=== PATIENT | female | born 1985 | race Caucasian/White ===

== ENCOUNTER → 2017-10-16 11:55 | Outpatient (CLI) | payer OTHER, SELFPAY ==
--- NOTE | 2017-10-25 09:56 | PM.CARDMON.1 ---
Per Diem Nurse Report Referral & Results Date Patient Seen: 10/16/17 Requesting provider: Florence Parada Indication: Palpitations Duration of monitoring (days): 3 Diary information: There were no patient diary entries. There were 10 patient triggered events associated with sinus rhythm and PVCs. 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 Occasional PVCs and PACs maybe etiology of patient's symptoms. Difficult to ascertain based on this study alone, as patient triggered events seem to be both sinus rhythm and premature depolarizations No other significant dysrhythmias identified Clinical correlation suggested
--- NOTE | 2017-10-25 09:59 | P.HOLT.S_ITS ---
Internet Marketing Assistant Report Referral & Results Date Patient Seen: 10/16/17 Requesting provider: Florence Parada Indication: Palpitations Duration of monitoring (days): 3 Diary information: There were no patient diary entries. There were 10 patient triggered events associated with sinus rhythm and PVCs. Data: The minimum heart rate identified was 45 beats per minute at 03:43 on 10/2017 Maximum heart rate identified was 160 beats per minute at 08:22 on 10/19/2017 Less than 1% of identified beats were either PACs or PVCs Impression: Probably normal air sampling and monitoring. Occasional PVCs and PACs maybe etiology of patient's symptoms. Difficult to ascertain based on this study alone, as patient triggered events seem to be both sinus rhythm and premature depolarizations No other significant dysrhythmias identified Clinical correlation suggested
== END ==
PROVIDERS: Family Provider Family Medicine; PCP Family Medicine; Visit Provider Family Medicine
DX: R00.2 Palpitations (principal)
CPT/HCPCS: 0296T; 0298T

== ENCOUNTER 2017-10-31 08:14 | Outpatient (CLI) | payer OTHER, SELFPAY ==
[2017-10-31] VITALS (8 sets, daily range): BP systolic 94–125; BP diastolic 55–71; PULSE 71–86; RESP 16–17; TEMP 36.7; O2SAT 100
--- NOTE | 2017-10-31 | DI.RAD.S_ITS ---
PROCEDURE: PAIN SI JOINT INJECTION INDICATIONS: INFLAMMATORY SPONDYLOSIS FINDINGS: Fluoroscopic spot filming was performed to verify placement of spinal needles at the right SI joint level(s), as labeled on the films. Appropriate location(s) of the needle tip(s) was confirmed by injection of iodinated contrast. IMPRESSION: Injection right sacroiliac joint for pain control Dictated by: Andrzej White M.D. on 10/31/2017 at 13:18 Approved by: Andrzej White M.D. on 10/31/2017 at 13:19
--- NOTE | 2017-10-31 08:15 | DI.RAD.S_ITS ---
PROCEDURE: PAIN L/SI FACET INJ/BLK 1STL INDICATIONS: ARTHROPATHY OF LUMBAR FACET FINDINGS: Fluoroscopic spot filming was performed to verify placement of spinal needles at the right L5-S1 level, as labeled on the films. Appropriate location(s) of the needle tip(s) was confirmed by injection of iodinated contrast. IMPRESSION: Successful right L5-S1 localization for facet joint region steroid injection. Dictated by: Wei Ignacio M.D. on 10/31/2017 at 11:02 Approved by: Wei Ignacio M.D. on 10/31/2017 at 11:03
--- NOTE | 2017-10-31 09:21 | P.PCN_ITS ---
Procedures Date/Time Date of procedure: 10/31/17 Time of procedure: 09:43 General Procedure description: PREOP Dx: Sacroiliac joint pain/DJD POST OP DX: Sacroliac Joint Pain/DJD Procedures: Fluoroscopic guided contrast controlled sacroiliac joint injection Physician: Paul Cervantes D.O. Indications: Jessica is referred by for treatment of sacroiliac joint DJD Description of procedure Fluoroscopic guided, contrast controlled sacroiliac joint injection Following denial of allergies and review of potential side effects and complications, including, but not necessarily limited to, infection, allergic reaction, local tissue breakdown, temporary as well as permanent nerve injury, paralysis, stroke and possible , the patient indicated that they understood and agreed to proceed. An informed consent was signed by the patient , witnessed by a nurse, and placed in the patient's chart. Additionally, other treatment options including modalities, medications, and physical therapy were reviewed with the patient. Per the patient request, IV conscious sedation was administered via 4mg of Versed to patient comfort. The patient's vital signs were monitored throughout the procedure by both the nurse and the position without significant fluctuation. The patient remained conversant throughout the procedure. In the prone position following sterile prep and drape of the pelvic region, the hyper lucency on in the inferior aspect of the sacroiliac joint was identified fluoroscopically the skin was anesthetized be a 25 gauge 1 eventual with approximately 2 cc of 1% lidocaine solution. At this point, a 22 gauge 3 in spinal needle was atraumatically introduced and advanced under fluoroscopic guidance into the inferior aspect of the sacroiliac joint. Following negative aspiration, approximately 0.3 cc of Isovue-300 was injected confirming intra- articular placement without vascular uptake. Radiographic data, including multiple fluoroscopic views of the pelvis, reveals a spinal needle in the sacroiliac joint hyper loosen zone. Subsequent view show flow contrast tear superiorly and inferiorly within the joint capsule without vascular intrathecal uptake. At this point a total of 1 cc or 0 8 of 0.5% Marcaine was combined with 1 cc of 6 mg of betamethasone was injected without incident. The patient was then transferred to the recovery area with a bur observed for an appropriate time after the injection. The patient reverted a vas score of 7 prior to the procedure and postprocedure vas of 1. Total fluoroscopy time: 22.7 sec Total conscious sedation time: 24 min Postop instructions The patient was provided with a pain like to continue to record the patient's response to the target specific procedure prior to the patient's follow-up visit with the referring physician. Additionally, specific post injection care instructions and a contact number to our office were provided if concerns arise regarding the possible complications associated with procedure are suspected. Paul Cervantes D.O.
[2017-10-31] MEDS: MIDAZOLAM 5 MG/5 ML VIAL IV (09:22)
[2017-10-31] MEDS: BUPIVACAINE 0.5% (PF) 30 ML VIAL 5 ML INJ (09:30)
[2017-10-31] MEDS: BETAMETHASONE 30 MG/5 ML MDV 12 MG INJ (09:30)
[2017-10-31] MEDS: BETAMETHASONE 30 MG/5 ML MDV 6 MG INJ (09:30)
[2017-10-31] MEDS: IOPAMIDOL 15 ML VIAL 3 ML INJ (09:30)
[2017-10-31] MEDS: LIDOCAINE 1% 20 ML INJ 10 ML INJ (09:30)
--- NOTE | 2017-10-31 09:46 | P.PCN_ITS ---
Procedures Date/Time Date of procedure: 10/31/17 Time of procedure: 09:46 General Procedure description: PREOP DIAGNOSIS 1. FACET ARTHROPATHY, 2. AXIAL LBP, 3. MULTILEVEL DDD, POST OP DIAGNOSIS 1. FACET ARTHROPATHY, 2. AXIAL LBP, 3. MULTILEVEL DDD, PROCEDURES 1. FLUORSCOPICALLY GUIDED CONTRAST CONTROLLED FACET JOINT INJECTIONS RIGHT L5/ S1 SURGEON: DO TONG Solorzano is referred by Dr. Parada for treatment of Axial LBP FINDINGS Multilevel Facet Arthropathy with Clinically significant axial LBP DESCRIPTION OF PROCEDURE Fluoroscopically guided, contrast-controlled right L5/S1 facet joint injections. Following denial of allergy and review of potential side effects and complications, including, but not necessarily limited to, infection, allergic reaction, local tissue breakdown, stroke, temporary or permanent nerve injury, paralysis, and possible , the patient indicated that the patient understood and agreed to proceed. An informed consent document was signed by the patient, witnessed by a nurse, and placed in the patient's chart. Additionally, other treatment options including medications, modalities, and physical therapy were reviewed with the patient. Per the patient request, IV conscious sedation was administered via 4mg of Versed to patient comfort. The patient's vital signs were monitored throughout the procedure by both the nurse and the physician without significant fluctuation. The patient remained conversant throughout the procedure. In the prone position, following sterile prep and drape of the lumbar region, the posterior aspect of the right L5/S1 facet joints were identified fluoroscopically. The skin was anesthetized via a 25-gauge 1.5-inch needle with 1% lidocaine solution into the corresponding facet joints. At this point, a 22-gauge 3.5-inch spinal needle was atraumatically introduced and advanced under fluoroscopic guidance into the corresponding facet joints. Following negative aspiration, injections of approximately 0.2-cc of Isovue 200 confirmed interarticular placement without vascular uptake. Radiological data, including multiple fluoroscopic views of the lumbosacral spine, reveal a spinal needle at the right L5/S1 facet joints. Subsequent views show flow of contrast material both superiorly and inferiorly within the joint space without vascular or intrathecal uptake. At this point, a total of 0.5 cc including a mixture of 0.25 cc Marcaine and 0.25 cc betamethasone was injected without complication into each of the corresponding facet joints. The patient was then transferred to the recovery area where they were observed for an appropriate period of time after the injection. The patient reported a VAS score of 7 prior to the procedure and a post-procedure VAS of 0. Total Fluoroscopy Time: 12.7 seconds Total Conscious Sedation Time: 24min POST OP INSTRUCTIONS The patient was provided a Pain Log to continue to record their response to the target-specific procedure prior to follow-up visit with their referring physician. Additionally, specific post-injection care instructions and a contact number to our office were provided if concerns arise regarding possible complications associated with the procedure are suspected Complications: none
== END 2017-10-31 10:12 | disposition home or self-care (01) ==
LOC: RAD 08:15
PROVIDERS: Family Provider Family Medicine; PCP Family Medicine; Visit Provider Physical Medicine & Rehabilitation
DX: M46.96 Unspecified inflammatory spondylopathy, lumbar region (principal); M53.3 Sacrococcygeal disorders, not elsewhere classified; M47.898 Other spondylosis, sacral and sacrococcygeal region
CPT/HCPCS: 27096; 64493; 99152; J0702; J1040; J2250

== ENCOUNTER → 2018-01-30 12:25 | Outpatient (CLI) | payer OTHER, SELFPAY ==
--- NOTE | 2018-01-30 12:27 | DI.RAD.S_ITS ---
PROCEDURE: XR FOOT RT MIN 3V INDICATIONS: right heel pain TECHNIQUE: 3 views of the foot were acquired. COMPARISON: [facility], CR, ANKLE 3 VIEWS RIGHT, 06/29/2009, 10:54. [facility], RG, XR ANKLE 3V RIGHT, 08/30/1999, 12:46. [facility], RG, XR ANKLE 3V RIGHT, 08/04/2002, 10:59. FINDINGS: Bones: No fractures or dislocations. No suspicious bony lesions. A bipartite lateral sesamoid bone can be seen. Soft tissues: No tibiotalar joint effusion. Achilles tendon appears normal. IMPRESSION: No significant imaging abnormality is seen to explain the patient's symptoms. Dictated by: Kj Spence M.D. on 01/30/2018 at 13:24 Approved by: Kj Spence M.D. on 01/30/2018 at 13:25
== END ==
PROVIDERS: Family Provider Family Medicine; PCP Family Medicine; Visit Provider Family Medicine
DX: M79.671 Pain in right foot (principal)
CPT/HCPCS: 73630

== ENCOUNTER → 2018-02-28 15:00 | Outpatient (CLI) | payer OTHER, SELFPAY | PROVIDERS: PCP Family Medicine | DX: Z23 Encounter for immunization (principal) | CPT/HCPCS: 90471; 90686 ==

== ENCOUNTER → 2018-05-09 09:22 | Outpatient (CLI) | payer OTHER, SELFPAY ==
--- NOTE | 2018-05-09 09:23 | DI.MG.S_ITS ---
BILATERAL DIGITAL SCREENING MAMMOGRAM 3D/2D WITH CAD: 05/09/2018 CLINICAL: Routine screening. Family history of breast cancer. Comparison is made to exams dated: 11/29/2016 mammogram and 04/10/2014 mammogram - [facility]. The tissue of both breasts is extremely dense, which lowers the sensitivity of mammography. Current study was also evaluated with a Computer Aided Detection (CAD) system. There is an oval equal density asymmetry with an indistinct margin in the right breast posterior depth superior region seen on the mediolateral oblique view only. No other significant masses, calcifications, or other findings are seen in either breast. IMPRESSION: INCOMPLETE: NEEDS ADDITIONAL IMAGING EVALUATION The oval equal density asymmetry in the right breast is indeterminate. Mediolateral and spot compression views as well as additional views with possible ultrasound are recommended. This exam was interpreted at Station ID: [id number]. NOTE: For mammograms, a report in lay terms will be sent to the patient. Approximately 15% of breast malignancies will not be visualized mammographically. In the management of a palpable breast mass, a negative mammogram must not discourage biopsy of a clinically suspicious lesion. Electronically Signed By: Jonathan roberson/nicky:05/09/2018 18:16:40 letter sent: Additional Imaging Needed ACR BI-RADS Category 0: Incomplete 3340F
== END ==
PROVIDERS: PCP Family Medicine; Visit Provider Family Medicine
DX: Z12.31 Encounter for screening mammogram for malignant neoplasm of breast (principal)
CPT/HCPCS: 77063; 77067

== ENCOUNTER → 2018-05-23 14:17 | Outpatient (CLI) | payer OTHER, SELFPAY ==
--- NOTE | 2018-05-23 14:00 | DI.US.S_ITS ---
Patient Name: SONYA OROURKE date: 1985 Sex: F Attending Physician: Franky Indications: Date: 05/23/2018 16:37 At the request of: DALLAS ARNDT Procedure: US breast RT limited ULTRASOUND OF RIGHT BREAST: 05/23/2018 CLINICAL: Follow up from addtional views. Comparison is made to exams dated: 05/23/2018 mammogram, 05/09/2018 mammogram, and 11/29/2016 mammogram - [facility]. Color flow ultrasound of the right breast was performed. Zamora scale images of the real-time examination were reviewed. There is 0.5 cm wider than tall oval mass with a circumscribed margin in the right breast at 12 o'clock posterior depth 8 cm from the nipple. This oval mass is hypoechoic with internal echoes. Color flow imaging demonstrates that there is no vascularity present. IMPRESSION: PROBABLY BENIGN The 0.5 cm wider than tall oval mass in the right breast likely represents clustered cysts or a complicated cyst and is probably benign. A follow-up ultrasound in 6 months is recommended to demonstrate stability. This exam was interpreted at Station ID: [id number]. Electronically Signed By: Ulises rubio/nicky:05/23/2018 17:52:59 letter sent: Followup Recommended Ultrasound BI-RADS: 3 Probably benign
--- NOTE | 2018-05-23 14:00 | DI.MG.S_ITS ---
Patient Name: SONYA OROURKE date: 1985 Sex: F Attending Physician: Franky Indications: Date: 05/23/2018 14:26 At the request of: DALLAS ARNDT Procedure: MM special view RT UNILATERAL RIGHT DIGITAL DIAGNOSTIC MAMMOGRAM 3D/2D WITH ADDITIONAL VIEWS: 05/23/2018 CLINICAL: Additional evaluation requested from prior study. Family history of breast cancer. Comparison is made to exams dated: 05/09/2018 mammogram, 11/29/2016 mammogram, and 04/10/2014 mammogram - [facility]. The tissue of right breast is extremely dense, which lowers the sensitivity of mammography. The equal density asymmetry with an indistinct margin in the right breast posterior depth superior region seen on the mediolateral oblique view only is no longer seen in additional views. No other significant masses or calcifications are seen in the breast. IMPRESSION: INCOMPLETE: NEEDS ADDITIONAL IMAGING EVALUATION An ultrasound is recommended to confirm resolution of equal density asymmetry in the right breast posterior depth superior region seen on the mediolateral oblique view only. This is scheduled to immediately follow this examination. This exam was interpreted at Station ID: [id number]. NOTE: For mammograms, a report in lay terms will be sent to the patient. Approximately 15% of breast malignancies will not be visualized mammographically. In the management of a palpable breast mass, a negative mammogram must not discourage biopsy of a clinically suspicious lesion. Electronically Signed By: Ulises Eric M.D. aty/:05/23/2018 17:27:59 ACR BI-RADS Category 0: Incomplete 3340F Continued Report - Page 2 of 2 Patient Name: SONYA OROURKE date: 1985 Sex: F Attending Physician: Franky Indications: Date: 05/23/2018 14:26 At the request of: DALLAS ARNDT Procedure: MM special view RT
== END ==
PROVIDERS: PCP Family Medicine; Visit Provider Family Medicine
DX: R92.8 Other abnormal and inconclusive findings on diagnostic imaging of breast (principal); N63.10 Unspecified lump in the right breast, unspecified quadrant; Z80.3 Family history of malignant neoplasm of breast
CPT/HCPCS: 76642; 77065; G0279

== ENCOUNTER → 2018-06-04 09:00 | Outpatient (CLI) | payer OTHER, SELFPAY ==
[2018-06-04 09:34] LABS: Influenza A and B by PCR Rapid Negative (Negative)
== END ==
PROVIDERS: PCP Family Medicine; Visit Provider Family Medicine
DX: R68.89 Other general symptoms and signs (principal)
CPT/HCPCS: 87400

== ENCOUNTER → 2018-09-16 11:26 | Outpatient (CLI) | payer OTHER, SELFPAY ==
--- NOTE | 2018-09-16 | DI.RAD.S_ITS ---
PROCEDURE: XR THORACIC SPINE 3V INDICATIONS: Low back pain TECHNIQUE: 3 views of the thoracic spine were acquired. COMPARISON: None. FINDINGS: Bones: No fractures or dislocations. No suspicious bony lesions. 12 pairs of ribs are noted, and appear intact where visualized. Soft tissues: No paravertebral stripe thickening. IMPRESSION: Normal thoracic spine. Dictated by: Lidia Andrade M.D. on 09/16/2018 at 13:27 Approved by: Lidia Andrade M.D. on 09/16/2018 at 13:28
== END ==
PROVIDERS: PCP Family Medicine; Visit Provider Anesthesiology Pain Medicine
DX: M54.5 Low back pain (principal); M48.02 Spinal stenosis, cervical region
CPT/HCPCS: 72072

== ENCOUNTER → 2018-11-12 11:41 | Outpatient (CLI) | payer OTHER, SELFPAY ==
[2018-11-12 12:25] LABS: RBC Urine None Seen (0-5/HPF)
[2018-11-12 12:33] LABS: Appearance Urine UA CLEAR; Bilirubin Urine UA NEGATIVE (NEGATIVE); Color Urine UA YELLOW; Glucose Urine UA NEGATIVE (Negative); Ketones Urine UA TRACE (NEGATIVE); Leukocyte Esterase Urine UA TRACE (NEGATIVE); Nitrite Urine UA NEGATIVE (Negative); Occult Blood Urine UA NEGATIVE (Negative); Protein Urine UA NEGATIVE (Negative); Specific Gravity Urine UA 1.025 (1.000-1.035); Urobilinogen Urine UA 0.2 E.U./dL (0.2)
[2018-11-12 12:52] LABS: Amorphous Sediment Urine 1+; Bacteria Urine Moderate (10-30); Squamous Epithelial Cell Urine 5-10 /HPF (0-5/HPF); WBC Urine 10-30/HPF (0-5/HPF)
[2018-11-12 12:53] LABS: Culture Indicated Urine Specimen Cultured; Mucus Urine 1+ (Negative)
== END ==
PROVIDERS: PCP Family Medicine; Visit Provider Registered Nurse
DX: R10.9 Unspecified abdominal pain (principal)
CPT/HCPCS: 81001; 87077; 87086; 87147

== ENCOUNTER → 2018-11-26 12:35 | Outpatient (CLI) | payer OTHER, SELFPAY ==
--- NOTE | 2018-11-26 12:36 | DI.US.S_ITS ---
ULTRASOUND OF RIGHT BREAST: 11/26/2018 CLINICAL: Patient returns for a 6 month follow up of the right breast. Comparison is made to exams dated: 11/26/2018 mammogram, 05/23/2018 ultrasound, 05/23/2018 mammogram, 05/09/2018 mammogram, and 11/29/2016 mammogram - [facility]. Color flow and real-time ultrasound of the right breast were performed. Zamora scale images of the real-time examination were reviewed. There is 0.4 cm x 0.3 cm x 0.4 cm wider than tall oval mass with a circumscribed margin in the right breast at 12 o'clock posterior depth 4 cm from the nipple. This oval mass is hypoechoic with internal echoes. This abnormality is not significantly changed. Color flow imaging demonstrates that there is no vascularity present. Of note, it was previously described as being 8 cm from the nipple which is explained by differences in positioning between the two exams. No findings were noted at 8cm from the nipple on today's study. Images appear nearly identical to those taken on 05/23/2018. IMPRESSION: PROBABLY BENIGN The stable 0.4 cm x 0.3 cm x 0.4 cm wider than tall oval mass in the right breast likely represents clustered cysts or a complicated cyst and is probably benign. A follow-up bilateral mammogram and a right breast ultrasound in 6 months is recommended to demonstrate continued stability. This exam was interpreted at Station ID: [id number]. Electronically Signed By: Ulises Eric M.D. aty/:11/26/2018 15:31:37 letter sent: Followup Recommended Ultrasound BI-RADS: 3 Probably benign
--- NOTE | 2018-11-26 12:36 | DI.MG.S_ITS ---
UNILATERAL RIGHT DIGITAL DIAGNOSTIC MAMMOGRAM 3D/2D: 11/26/2018 CLINICAL: Patient returns for a 6 month follow up of the right breast. Comparison is made to exams dated: 05/23/2018 mammogram, 05/09/2018 mammogram, and 11/29/2016 mammogram - [facility]. The tissue of right breast is extremely dense, which lowers the sensitivity of mammography. The oval equal density asymmetry in the right breast posterior depth superior region seen on the mediolateral oblique view only is no longer seen. No other significant masses or calcifications are seen in the breast. IMPRESSION: INCOMPLETE: NEEDS ADDITIONAL IMAGING EVALUATION An ultrasound is recommended to confirm the no longer seen oval equal density asymmetry in the right breast posterior depth superior region seen on the mediolateral oblique view only which is scheduled to immediately follow this examination. This exam was interpreted at Station ID: [id number]. NOTE: For mammograms, a report in lay terms will be sent to the patient. Approximately 15% of breast malignancies will not be visualized mammographically. In the management of a palpable breast mass, a negative mammogram must not discourage biopsy of a clinically suspicious lesion. Electronically Signed By: Ulises Eric M.D. aty/:11/26/2018 14:09:35 ACR BI-RADS Category 0: Incomplete 3340F
== END ==
PROVIDERS: PCP Family Medicine; Visit Provider Family Medicine
DX: R92.8 Other abnormal and inconclusive findings on diagnostic imaging of breast (principal); N63.10 Unspecified lump in the right breast, unspecified quadrant
CPT/HCPCS: 76642; 77065; G0279

== ENCOUNTER → 2019-01-09 08:06 | Outpatient (CLI) | payer OTHER, SELFPAY ==
--- NOTE | 2019-01-09 | DI.MRI.S_ITS ---
PROCEDURE: MR CERVICAL SPINE WO CON INDICATIONS: Spinal stenosis, cervical region TECHNIQUE: Noncontrast sagittal T1 spin echo and T2 fast spin echo, sagittal STIR, foraminal oblique sagittal T2 fast spin echo, and axial gradient echo or T2 fast spin echo through the cervical spine. COMPARISON: None. FINDINGS: Image quality: Excellent. Alignment and Curvature: There is minimal retrolisthesis of C4 on C5, C5 on C6. Bone Marrow: Marrow demonstrates normal overall signal. Spinal Cord: Visualized spinal cord has normal size and signal. No cerebellar tonsillar herniation. Paraspinous Soft Tissues: No paravertebral masses. Prevertebral soft tissues are normal in thickness. C2-C3: No disc bulge, spinal stenosis or foraminal narrowing. C3-C4: Minimal disc bulge without spinal stenosis or foraminal narrowing. C4-C5: Minimal disc bulge with minimal canal narrowing. Minimal right foraminal narrowing. C5-C6: Minimal disc bulge with minimal canal narrowing. Minimal bilateral foraminal narrowing. C6-C7: No disc bulge, spinal stenosis or foraminal narrowing. C7-T1: No disc bulge, spinal stenosis or foraminal narrowing. IMPRESSION: 1. Minimal areas of disc bulge, canal and foraminal narrowing as above. Dictated by: Katheryn Dawson M.D. on 01/09/2019 at 17:37 Approved by: Katheryn Dawson M.D. on 01/09/2019 at 17:40
== END ==
PROVIDERS: PCP Family Medicine; Visit Provider Anesthesiology Pain Medicine
DX: M48.02 Spinal stenosis, cervical region (principal)
CPT/HCPCS: 72141

== ENCOUNTER → 2019-02-20 08:56 | Outpatient (CLI) | payer OTHER, SELFPAY ==
[2019-02-20 09:50] LABS: Hematocrit 41.2 % (36-46); Hemoglobin 13.7 g/dL (12.0-16.0)
[2019-02-20 10:15] LABS: Cholesterol 168 mg/dL (140-199); Glucose 91 mg/dL (70-100); HDL Cholesterol 65 mg/dL (40-60); LDL Cholesterol Calculated 64 mg/dL (<100); Triglycerides 196 mg/dL (35-150)
[2019-02-20 11:48] LABS: Thyroid Stimulating Hormone 1.18 uIU/mL (0.47-4.68)
== END ==
PROVIDERS: PCP Family Medicine; Visit Provider Family Medicine
DX: Z13.0 Encounter for screening for diseases of the blood and blood-forming organs and certain disorders involving the immune mechanism (principal); Z13.1 Encounter for screening for diabetes mellitus; Z13.220 Encounter for screening for lipoid disorders; Z13.29 Encounter for screening for other suspected endocrine disorder
CPT/HCPCS: 36415; 80061; 82947; 84443; 85014; 85018

== ENCOUNTER → 2019-03-04 14:59 | Outpatient (CLI) | payer OTHER, SELFPAY | PROVIDERS: PCP Family Medicine | DX: Z23 Encounter for immunization (principal) | CPT/HCPCS: 90471; 90686 ==

== ENCOUNTER → 2019-04-09 10:01 | Outpatient (CLI) | payer OTHER, SELFPAY ==
--- NOTE | 2019-04-09 10:02 | DI.RAD.S_ITS ---
PROCEDURE: XR KNEE LT 3V INDICATIONS: left knee pain TECHNIQUE: Pre-views of the knee were acquired. COMPARISON: None. FINDINGS: Bones: No fractures or dislocations. No suspicious bony lesions. Soft tissues: No joint effusion. No suspicious soft tissue calcifications. IMPRESSION: Normal for age, source of current left knee pain symptoms is not seen. Dictated by: Wei Ignacio M.D. on 04/09/2019 at 11:58 Approved by: Wei Ignacio M.D. on 04/09/2019 at 11:58
== END ==
PROVIDERS: PCP Family Medicine; Visit Provider Family Medicine
DX: M25.562 Pain in left knee (principal)
CPT/HCPCS: 73562

== ENCOUNTER → 2019-05-05 13:14 | Outpatient (CLI) | payer OTHER, SELFPAY ==
--- NOTE | 2019-05-05 13:16 | DI.MRI.S_ITS ---
PROCEDURE: MR KNEE LT WO CON INDICATIONS: left knee pain TECHNIQUE: Noncontrast sagittal PD fast spin echo and T2 fast spin echo with fat saturation, sagittal 3-D FLASH with fat saturation; coronal T1 spin echo and PD fast spin echo with fat saturation, and axial PD fast spin echo with fat saturation through the knee. COMPARISON: [facility], MR, KNEE WITHOUT CONTRAST, 04/25/2013, 15:13. FINDINGS: Image quality: Diagnostic. Bones and joint: There is no acute fracture or dislocation. No suspicious osseous lesions are evident. No significant knee joint effusion is identified. There is no Rodriguez's cyst. Heterogeneity and mild surface irregularity of the hyaline articular cartilage within the patellofemoral compartment is identified, which is more pronounced on the current study, compared to the previous exam. The hyaline articular cartilage within the medial and lateral tibiofemoral compartments appears intact. However, there is heterogeneity of the hyaline articular cartilage within the medial tibiofemoral compartment. There may be an area of cartilaginous fissuring along the medial tibial plateau given the underlying reactive/degenerative marrow edema within the subchondral region. Cruciate ligaments: The anterior and posterior cruciate ligaments are intact. Menisci: Susceptibility artifact along the periphery of the medial meniscus may be related to previous meniscal surgery. There is mild edema identified within this region. There may be a subtle peripheral tear. However, no articular surface tears are present. The lateral meniscus is intact and otherwise unremarkable. Medial structures: The medial collateral ligament is intact. The semimembranosus tendon insertion is thickened and mildly edematous. The imaged portions of the pes anserinus tendons are unremarkable. No significant fluid is contained within the pes anserinus bursa. Lateral structures: The popliteal tendon is intact. The lateral collateral ligament proper (fibular collateral ligament) and the proximal tibiofibular ligaments are intact. The distal aspect of the biceps femoris tendon and the iliotibial band are intact. Anterior structures: The quadriceps and patellar tendons are intact. Mild increased signal involving the proximal patellar tendon is identified, which is noted to extend over the anterior margin of the lateral femoral condyle. Mild edema is noted within the superolateral aspect of the infrapatellar fat pad. IMPRESSION: 1. Subtle horizontal tear in the periphery of the body of the medial meniscus. No articular surface involvement is evident. 2. Mild distal semimembranosus tendinopathy. 3. 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 4. Mild proximal patellar tendinopathy with extension of the proximal patellar tendon over the anterior margin of the lateral femoral condyle. Please correlate clinically for possible lateral femoral condyle-patellar tendon friction syndrome. Dictated by: Byron Hogue M.D. on 05/05/2019 at 16:51 Approved by: Byron Hogue M.D. on 05/05/2019 at 16:55
== END ==
PROVIDERS: PCP Family Medicine; Visit Provider Family Medicine
DX: M25.562 Pain in left knee (principal); S83.242A Other tear of medial meniscus, current injury, left knee, initial encounter; M94.262 Chondromalacia, left knee
CPT/HCPCS: 73721

== ENCOUNTER → 2019-05-12 08:50 | Outpatient (CLI) | payer OTHER, SELFPAY ==
--- NOTE | 2019-05-12 08:51 | DI.MG.S_ITS ---
BILATERAL DIGITAL DIAGNOSTIC MAMMOGRAM 3D/2D SHORT-TERM FOLLOW-UP: 05/12/2019 CLINICAL: Patient returns for 12 month follow up of right breast, due for bilateral exam. Comparison is made to exams dated: 11/26/2018 mammogram, 05/23/2018 mammogram, 05/09/2018 mammogram, 11/26/2018 ultrasound, and 05/23/2018 ultrasound - [facility]. The tissue of both breasts is extremely dense, which lowers the sensitivity of mammography. Previously identified oval equal density asymmetry with an indistinct margin in the right breast posterior depth superior region seen on the mediolateral oblique view only on comparison screening mammogram of 05/09/18 remains stable in appearance to prior exam. No other new significant masses, calcifications, or other findings are seen in either breast. IMPRESSION: INCOMPLETE: NEEDS ADDITIONAL IMAGING EVALUATION Previously identified oval equal density asymmetry with an indistinct margin in the right breast posterior depth superior region seen on the mediolateral oblique view only on comparison screening mammogram of 05/09/18 remains stable in appearance to prior exam. A targeted ultrasound is recommended for further evaluation. This exam was interpreted at Station ID: [id number]. NOTE: For mammograms, a report in lay terms will be sent to the patient. Approximately 15% of breast malignancies will not be visualized mammographically. In the management of a palpable breast mass, a negative mammogram must not discourage biopsy of a clinically suspicious lesion. Electronically Signed By: Rigo Kim M.D. ecl/:05/12/2019 09:41:10 ACR BI-RADS Category 0: Incomplete 3340F
--- NOTE | 2019-05-12 08:51 | DI.US.S_ITS ---
LIMITED ULTRASOUND OF RIGHT BREAST: 05/12/2019 CLINICAL: 6 month follow-up. Comparison is made to exams dated: 05/12/2019 mammogram, 11/26/2018 ultrasound, 11/26/2018 mammogram, 05/23/2018 ultrasound, 05/23/2018 mammogram, and 05/09/2018 mammogram - [facility]. Color flow and real-time ultrasound of the right breast 12 o'clock region were performed. Zamora scale images of the real-time examination were reviewed. There is a 0.4 x 0.3 x 0.4 cm wider than tall oval circumscribed hypoechoic mass in the right breast at 12:00 position. This demonstrates low level internal echoes with no vascularity on Doppler ultrasound. This mass previously measured 0.4 x 0.3 x 0.4 cm on comparison exam of 11/26/18. Of note, there have been discrepancy is in the location of this mass on prior comparison ultrasounds. The comparison ultrasound of 11/26/18 described the mass as being at the 12:00 position 4 cm from the nipple while the initial comparison exam of 05/23/18 described the mass at the 12:00 position 8 cm from the nipple. On today's exam the mass is located closer to the 12:00 position 8 cm from the nipple, with no other mass identified closer to the 12:00 position 4 cm from the nipple. IMPRESSION: PROBABLY BENIGN Stable 0.4 x 0.3 x 0.4 cm wider than tall oval circumscribed hypoechoic mass in the right breast at 12:00 position, which has been alternatively described as being at 12:00 position 4 cm from the nipple on comparison exam of 11/28/18 and at the 12:00 position 8 cm from the nipple on comparison exam of 05/23/18. A follow-up mammogram and targeted ultrasound in 6 months is recommended to demonstrate continued stability. The patient is advised to monitor her breasts and to return sooner for re-evaluation should she feel anything grow or change. This exam was interpreted at Station ID: [id number]. Electronically Signed By: Rigo Kim M.D. ecl/:05/12/2019 10:22:37 letter sent: Followup Recommended Ultrasound BI-RADS: 3 Probably benign
== END ==
PROVIDERS: PCP Family Medicine; Visit Provider Family Medicine
DX: R92.8 Other abnormal and inconclusive findings on diagnostic imaging of breast (principal); N63.15 Unspecified lump in the right breast, overlapping quadrants; Z80.3 Family history of malignant neoplasm of breast
CPT/HCPCS: 76642; 77066; G0279

== ENCOUNTER → 2019-11-27 11:44 | Outpatient (CLI) | payer OTHER, SELFPAY ==
--- NOTE | 2019-11-27 11:45 | DI.RAD.S_ITS ---
PROCEDURE: XR MANDIBLE MIN 4V INDICATIONS: right sided jaw pain TECHNIQUE: For views of the mandible were acquired. COMPARISON: None. FINDINGS: Bones: No fractures or dislocations. No suspicious bony lesions. Soft tissues: Visualized sinuses appear clear. No suspicious soft tissue densities. IMPRESSION: No trauma found. Depending on the clinical status obtaining [employer] dental imaging may become necessary. Dictated by: Wei Ignacio M.D. on 11/27/2019 at 13:21 Approved by: Wei Ignacio M.D. on 11/27/2019 at 13:22
== END ==
PROVIDERS: PCP Family Medicine; Referring Provider Family Medicine; Visit Provider Family Medicine
DX: R68.84 Jaw pain (principal)
CPT/HCPCS: 70110

== ENCOUNTER → 2020-03-05 04:28 | Outpatient (CLI) | payer OTHER, SELFPAY | PROVIDERS: PCP Family Medicine; Referring Provider Internal Medicine; Visit Provider Internal Medicine | DX: Z23 Encounter for immunization (principal) | CPT/HCPCS: 90471; 90686 ==

== ENCOUNTER → 2020-03-26 08:41 | Outpatient (CLI) | payer OTHER, SELFPAY ==
--- NOTE | 2020-03-26 08:42 | DI.US.S_ITS ---
ULTRASOUND OF RIGHT BREAST: 03/26/2020 CLINICAL: 6 month follow-up of cysts. Comparison is made to exams dated: 03/26/2020 mammogram, 05/12/2019 ultrasound, 05/12/2019 mammogram, 11/26/2018 ultrasound, 11/26/2018 mammogram, and 05/23/2018 [facility]. Ultrasound of the right breast was performed on the area of interest. Zamora scale images of the real-time examination were reviewed. There is a stable benign complicated cyst in the right axillary tail. IMPRESSION: BENIGN There is no sonographic evidence of malignancy. The stable complicated cyst is benign. A 1 year screening mammogram is recommended. This exam was interpreted at Station ID: [id number]. Electronically Signed By: Theresa banerjee/:03/26/2020 09:55:36 letter sent: Normal Exam Ultrasound BI-RADS: 2 Benign
--- NOTE | 2020-03-26 08:42 | DI.MG.S_ITS ---
BILATERAL DIGITAL DIAGNOSTIC MAMMOGRAM 3D/2D SHORT-TERM FOLLOW-UP: 03/26/2020 CLINICAL: Patient returns for a 6 month follow up of the right breast, due for bilateral exam. Comparison is made to exams dated: 05/12/2019 mammogram, 11/26/2018 mammogram, and 05/23/2018 mammogram - [facility]. The tissue of both breasts is heterogeneously dense. This may lower the sensitivity of mammography. There is an asymmetry in the right breast posterior depth superior region seen on the mediolateral oblique view only. This is less prominent. No other significant masses, calcifications, or other findings are seen in either breast. IMPRESSION: INCOMPLETE: NEEDS ADDITIONAL IMAGING EVALUATION The asymmetry in the right breast is indeterminate. A targeted ultrasound of the right breast is recommended and will be performed immediately following this exam. This exam was interpreted at Station ID: [id number]. NOTE: For mammograms, a report in lay terms will be sent to the patient. Approximately 15% of breast malignancies will not be visualized mammographically. In the management of a palpable breast mass, a negative mammogram must not discourage biopsy of a clinically suspicious lesion. Electronically Signed By: Theresa Suarez M.D. lk/:03/26/2020 09:28:19 ACR BI-RADS Category 0: Incomplete 3340F
== END ==
PROVIDERS: PCP Family Medicine; Referring Provider Family Medicine; Visit Provider Family Medicine
DX: R92.8 Other abnormal and inconclusive findings on diagnostic imaging of breast (principal)
CPT/HCPCS: 76642; 77066; G0279

== ENCOUNTER → 2020-03-30 16:01 | Outpatient (CLI) | payer OTHER, SELFPAY ==
--- NOTE | 2020-03-30 16:02 | DI.RAD.S_ITS ---
PROCEDURE: XR ANKLE RT MIN 3V INDICATIONS: rolled ankle TECHNIQUE: 3 views of the ankle were acquired. COMPARISON: [facility], , ANKLE 3 VIEWS RIGHT, 06/29/2009, 10:54. FINDINGS: Bones: No fractures or dislocations. Ankle mortise is normally aligned. No suspicious bony lesions. Soft tissues: No tibiotalar joint effusion. Achilles tendon appears normal. IMPRESSION: No trauma found. Dictated by: Wei Ignacio M.D. on 03/30/2020 at 17:00 Approved by: Wei Ignacio M.D. on 03/30/2020 at 17:00
== END ==
PROVIDERS: PCP Family Medicine; Referring Provider Family Medicine; Visit Provider Family Medicine
DX: S93.401A Sprain of unspecified ligament of right ankle, initial encounter (principal)
CPT/HCPCS: 73610

== ENCOUNTER → 2020-04-21 08:01 | Outpatient (CLI) | payer OTHER, SELFPAY ==
--- NOTE | 2020-04-21 08:04 | DI.MRI.S_ITS ---
PROCEDURE: MR PELIS WO/W CON INDICATIONS: Sacral pain TECHNIQUE: Noncontrast coronal T1 and STIR, axial oblique T1 and STIR obtained through the sacrum. Following the administration of intravenous contrast, axial and coronal oblique T1 with fat saturation obtained through the sacrum. COMPARISON: None. FINDINGS: Image quality: Excellent. Bones: The visualized bone marrow demonstrates normal overall signal. No fractures or bone contusions. No suspicious intraosseous mass lesions or abnormal marrow enhancement. The sacroiliac joints demonstrate no ankylosis, periarticular edema, or periarticular enhancement. No discrete bony erosions. The visualized intervertebral discs in the lower lumbar spine demonstrate preserved signal. Soft tissues: No soft tissue mass, loculated fluid collections, or abnormal enhancement. Visualized musculature demonstrates preserved signal and bulk. A small amount of free fluid is demonstrated within the pelvis which appears within physiologic limits. Visualized bowel loops appear normal in caliber. The bladder demonstrates normal wall thickness. IMPRESSION: 1. No fractures or bone contusions. 2. No evidence of sacroiliitis. Dictated by: Jonathan Lenz M.D. on 04/21/2020 at 11:46 Approved by: Jonathan Lenz M.D. on 04/21/2020 at 11:54
== END ==
PROVIDERS: PCP Family Medicine; Referring Provider Family Medicine; Visit Provider Family Medicine
DX: M53.3 Sacrococcygeal disorders, not elsewhere classified (principal)
CPT/HCPCS: 72197; A9579

== ENCOUNTER → 2020-04-22 16:07 | Outpatient (CLI) | payer OTHER, SELFPAY ==
[2020-04-22 16:52] LABS: COVID19 -Nasal RAPID Negative (Negative)
== END ==
PROVIDERS: PCP Family Medicine; Visit Provider Family Medicine
DX: R50.9 Fever, unspecified (principal)
CPT/HCPCS: 87635

== ENCOUNTER → 2020-05-20 14:13 | Outpatient (CLI) | payer OTHER, SELFPAY ==
[2020-05-20] MEDS: COVID-19 VACC(MODERNA-1)/PF 100 MCG/0.5 ML VIAL IM (14:18)
== END ==
PROVIDERS: PCP Family Medicine; Visit Provider Internal Medicine
DX: Z23 Encounter for immunization (principal)
CPT/HCPCS: 0011A; 91301

== ENCOUNTER → 2020-06-16 11:45 | Outpatient (CLI) | payer OTHER, SELFPAY ==
[2020-06-16] MEDS: COVID-19 VACC #2, MRNA(MOD) 100 MCG/0.5 ML VIAL IM (12:00)
== END ==
PROVIDERS: PCP Family Medicine; Visit Provider Internal Medicine
DX: Z23 Encounter for immunization (principal)
CPT/HCPCS: 0012A; 91301

== ENCOUNTER → 2020-10-06 11:32 | Outpatient (CLI) | payer OTHER, SELFPAY ==
--- NOTE | 2020-10-06 11:33 | DI.RAD.S_ITS ---
PROCEDURE: XR HIP W PEL IF DONE RT 2V INDICATIONS: R hip/pelvis pain TECHNIQUE: AP pelvis with lateral view(s) of the right hip(s). COMPARISON: None. FINDINGS: Bones: No fractures or dislocations. Pelvic ring appears intact. No suspicious bony lesions. No joint space narrowing. Soft tissues: The visualized bowel gas pattern is normal. No suspicious soft tissue calcifications. IMPRESSION: Unremarkable examination as above. If the patient's pain or other symptoms persist, consider further evaluation with MRI Dictated by: Puneet Hwang M.D. on 10/06/2020 at 14:38 Approved by: Puneet Hwang M.D. on 10/06/2020 at 14:39
== END ==
PROVIDERS: PCP Family Medicine; Referring Provider Nurse Practitioner Family; Visit Provider Nurse Practitioner Family
DX: M25.551 Pain in right hip (principal); R10.2 Pelvic and perineal pain
CPT/HCPCS: 73502

== ENCOUNTER → 2020-10-12 14:45 | Outpatient (CLI) | payer OTHER, SELFPAY ==
[2020-10-12 15:14] LABS: COVID19 -Nasal RAPID Negative (Negative)
== END ==
PROVIDERS: PCP Family Medicine; Visit Provider Physician Assistant
DX: R05 Cough (principal); R09.81 Nasal congestion; R50.9 Fever, unspecified; Z20.822 Contact with and (suspected) exposure to COVID-19
CPT/HCPCS: 87635

== ENCOUNTER → 2020-11-29 09:02 | Outpatient (CLI) | payer OTHER, SELFPAY ==
--- NOTE | 2020-11-29 09:02 | DI.RAD.S_ITS ---
PROCEDURE: XR CERVICAL SPINE 2V OR 3V INDICATIONS: acute neck pain right TECHNIQUE: 3 view(s) of the cervical spine were acquired. COMPARISON: [facility], CR, XR THORACIC SPINE 3V, 09/16/2018, 11:39. FINDINGS: Bones: No fractures or dislocations to the T1 level. The lateral masses of C1 appear intact on the odontoid view. No suspicious bony lesions. Soft tissues: No prevertebral soft tissue swelling. IMPRESSION: No definite radiographic abnormality. If pain persists with conservative management, consider cross sectional imaging such as CT or MRI for further assessment. Dictated by: Sidney Richmond [facility] Interpreted: Wei Ignacio MD on 11/29/2020 at 9:48 Transcribed by: CARLOS on 11/29/2020 at 9:49 Approved by: Wei Ignacio M.D. on 11/29/2020 at 10:57
== END ==
PROVIDERS: PCP Family Medicine; Referring Provider Nurse Practitioner; Visit Provider Nurse Practitioner
DX: M54.2 Cervicalgia (principal)
CPT/HCPCS: 72040

== ENCOUNTER → 2021-01-07 16:33 | Outpatient (CLI) | payer OTHER, SELFPAY ==
[2021-01-07 18:31] LABS: Thyroid Stimulating Hormone 1.02 uIU/mL (0.47-4.68)
== END ==
PROVIDERS: PCP Family Medicine; Referring Provider Family Medicine; Visit Provider Family Medicine
DX: Z13.29 Encounter for screening for other suspected endocrine disorder (principal)
CPT/HCPCS: 36415; 84443

== ENCOUNTER → 2021-01-11 09:38 | Outpatient (CLI) | payer OTHER, SELFPAY ==
--- NOTE | 2021-01-11 09:39 | DI.US.S_ITS ---
PROCEDURE: US EXTREMITY NONVASC LOWER RT INDICATIONS: ILIAC CREST PAIN. INSURANCE DENIED MR AND REQUESTED US. TECHNIQUE: Real-time scanning was performed of the right pelvic soft tissues, with image documentation. COMPARISON: None. FINDINGS: No sonographic abnormality identified in the area of clinical interest at the lateral margin of the right iliac crest/hip. No abnormal mass identified. No fluid collections or soft tissue edema identified. IMPRESSION: No sonographic abnormality identified in region of clinical interest. Dictated by: Jessica Ambrosio MD, PhD on 01/11/2021 at 14:06 Approved by: Jessica Ambrosio MD, PhD on 01/11/2021 at 14:15
== END ==
PROVIDERS: PCP Family Medicine; Referring Provider Nurse Practitioner Family; Visit Provider Nurse Practitioner Family
DX: M89.8X8 Other specified disorders of bone, other site (principal)
CPT/HCPCS: 76882

== ENCOUNTER → 2021-01-27 13:05 | Outpatient (CLI) | payer OTHER, SELFPAY | PROVIDERS: PCP Family Medicine; Visit Provider Family Medicine | DX: N39.0 Urinary tract infection, site not specified (principal) | CPT/HCPCS: 87086 ==

== ENCOUNTER → 2021-02-25 08:01 | Outpatient (CLI) | payer OTHER, SELFPAY ==
--- NOTE | 2021-02-25 08:02 | DI.MRI.S_ITS ---
PROCEDURE: MR HIP RT WO CON INDICATIONS: iliac crest bone pain, r/o gluteus medius tear TECHNIQUE: Noncontrast coronal T1 spin echo and STIR through the bony pelvis. Coronal and axial T2 fast spin echo with fat saturation, sagittal T1 spin echo, and oblique axial T2 fast spin echo with fat saturation through the hip. COMPARISON: None. FINDINGS: Image quality: Excellent. Bones and joints: Bone marrow of the pelvic ring and proximal femurs show normal signal throughout. No intraosseous lesions or fractures. No avascular necrosis of the femoral heads. Tendons and ligaments: The gluteus medius and minimus tendons appear intact, without associated muscle atrophy. The nearby proximal iliotibial band also appears intact. The iliopsoas tendon appears intact, without adjacent bursal fluid collections or evidence for impingement syndrome. The origin of the hamstring tendon is intact at the ischial tuberosity, as well as the associated sacrotuberous ligament. The straight and reflected heads of the rectus femoris muscle origin appear intact, as well as the conjoint tendon. Labrum and cartilage: The acetabular labrum appears intact in the absence of intra-articular contrast. Cartilage surface of the femoral head appears of normal thickness. Soft tissues: Visualized muscles demonstrate normal bulk and internal signal. Quadratus femoris muscle demonstrates no internal edema to suggest ischiofemoral impingement. The proximal sciatic neurovascular bundle appears normal adjacent to the hamstring tendons. No free pelvic fluid. Bladder wall thickness is normal. Genitourinary structures and bowel loops appear normal where visualized. IMPRESSION: No significant abnormality. Dictated by: Fausto Appiah M.D. on 02/25/2021 at 9:30 Approved by: Fausto Appiah M.D. on 02/25/2021 at 9:38
== END ==
PROVIDERS: PCP Family Medicine; Referring Provider Family Medicine; Visit Provider Family Medicine
DX: M89.8X8 Other specified disorders of bone, other site (principal)
CPT/HCPCS: 73721

== ENCOUNTER → 2021-03-15 19:34 | Outpatient (CLI) | payer OTHER, SELFPAY | PROVIDERS: PCP Family Medicine; Referring Provider Internal Medicine; Visit Provider Internal Medicine | DX: Z23 Encounter for immunization (principal) | CPT/HCPCS: 90471; 90686 ==

== ENCOUNTER → 2021-03-29 11:41 | Outpatient (CLI) | payer OTHER, SELFPAY ==
--- NOTE | 2021-03-29 | DI.MG.S_ITS ---
BILATERAL DIGITAL SCREENING MAMMOGRAM 3D/2D WITH CAD: 03/29/2021 CLINICAL: Routine screening. Family history of breast cancer. Comparison is made to exams dated: 03/26/2020 mammogram, 05/12/2019 mammogram, 11/26/2018 mammogram, 05/23/2018 mammogram, and 05/09/2018 mammogram - [facility]. The tissue of both breasts is extremely dense, which lowers the sensitivity of mammography. Current study was also evaluated with a Computer Aided Detection (CAD) system. No significant masses, calcifications, or other findings are seen in either breast. There has been no significant interval change. IMPRESSION: NEGATIVE There is no mammographic evidence of malignancy. A 1 year screening mammogram is recommended. This exam was interpreted at Station ID: [id number]. NOTE: For mammograms, a report in lay terms will be sent to the patient. Approximately 15% of breast malignancies will not be visualized mammographically. In the management of a palpable breast mass, a negative mammogram must not discourage biopsy of a clinically suspicious lesion. Electronically Signed By: Haroldo cruz/nicky:03/29/2021 12:42:22 letter sent: Normal Exam ACR BI-RADS Category 1: Negative 3341F
== END ==
PROVIDERS: PCP Family Medicine; Referring Provider Family Medicine; Visit Provider Family Medicine
DX: Z12.31 Encounter for screening mammogram for malignant neoplasm of breast (principal); Z80.3 Family history of malignant neoplasm of breast
CPT/HCPCS: 77063; 77067

== ENCOUNTER → 2021-05-04 13:52 | Outpatient (CLI) | payer OTHER, SELFPAY ==
[2021-05-04 14:43] LABS: COVID19 -Nasal RAPID Negative (Negative)
== END ==
PROVIDERS: PCP Family Medicine; Visit Provider Nurse Practitioner Family
DX: Z20.822 Contact with and (suspected) exposure to COVID-19 (principal)
CPT/HCPCS: 87635

== ENCOUNTER → 2021-06-09 12:36 | Outpatient (CLI) | payer OTHER, SELFPAY ==
[2021-06-09 13:29] LABS: COVID19 -Nasal RAPID Negative (Negative)
== END ==
PROVIDERS: PCP Family Medicine; Referring Provider Nurse Practitioner Family; Visit Provider Nurse Practitioner Family
DX: Z20.822 Contact with and (suspected) exposure to COVID-19 (principal); J02.9 Acute pharyngitis, unspecified
CPT/HCPCS: 87635

== ENCOUNTER → 2021-10-04 11:46 | Outpatient (CLI) | payer OTHER, SELFPAY ==
[2021-10-04 13:50] LABS: Alanine Aminotransferase 17 IU/L (<35); Albumin 4.3 g/dL (3.5-5.0); Albumin Globulin Ratio 1.5 (1.0-2.8); Alkaline Phosphatase 49 U/L (38-126); Aspartate Aminotransferase 25 IU/L (14-36); BUN Creatinine Ratio 11.6 (6-22); Bilirubin Total 0.4 mg/dL (0.2-1.3); Blood Urea Nitrogen 10 mg/dL (7-17); Calcium 9.2 mg/dL (8.4-10.2); Carbon Dioxide 28 mmol/L (22-32); Chloride 102 mmol/L (98-107); Estimated Glomerular Filt Rate > 60 mL/min (>60); Globulin 2.9 g/dL (1.7-4.1); Glucose 86 mg/dL (70-100); HEMOLYSIS < 15 (0-50); Potassium 4.8 mmol/L (3.4-5.1); Sodium 137 mmol/L (137-145); Total Protein 7.2 g/dL (6.3-8.2)
[2021-10-04 14:21] LABS: TSH w/ Reflex to FT4 0.68 uIU/mL (0.47-4.68)
[2021-10-04 15:09] LABS: Follicle Stimulating Hormone 3.02 mIU/mL; Luteinizing Hormone 0.467 mIU/mL; Progesterone, Total 0.38 ng/mL
[2021-10-04 15:24] LABS: Estradiol, Total 13.7 pg/mL
== END ==
PROVIDERS: PCP Family Medicine; Referring Provider Family Medicine; Visit Provider Family Medicine
DX: R61 Generalized hyperhidrosis (principal)
CPT/HCPCS: 36415; 80053; 82670; 83001; 83002; 84144; 84443

== ENCOUNTER → 2022-07-25 10:58 | Outpatient (CLI) | payer SELFPAY ==
--- NOTE | 2022-07-25 11:06 | DI.RAD.S_ITS ---
PROCEDURE: XR ANKLE LT MIN 3V INDICATIONS: suspect fracture TECHNIQUE: 3 views of the ankle were acquired. COMPARISON: None. FINDINGS: Bones: No fractures or dislocations. Ankle mortise is normally aligned. No suspicious bony lesions. Soft tissues: Moderate tibiotalar joint effusion. Achilles tendon appears normal. Soft tissue swelling over the lateral and medial malleoli. IMPRESSION: No acute osseous abnormalities. There is ankle effusion and soft tissue swelling. If clinical symptoms persist or clinical suspicion for pathology is high, advanced imaging such as CT or MRI is suggested for further evaluation. Dictated by: Hailey Ordaz M.D. on 07/25/2022 at 11:28 Approved by: Hailey Ordaz M.D. on 07/25/2022 at 11:30
== END ==
PROVIDERS: PCP Nurse Practitioner; Referring Provider Nurse Practitioner; Visit Provider Nurse Practitioner
DX: M25.472 Effusion, left ankle (principal); M25.572 Pain in left ankle and joints of left foot
CPT/HCPCS: 73610

== ENCOUNTER → 2023-03-16 | Outpatient (CLI) | payer SELFPAY | PROVIDERS: PCP Nurse Practitioner; Referring Provider Family Medicine; Visit Provider Family Medicine | DX: Z23 Encounter for immunization (principal) | CPT/HCPCS: 90471; 90686 ==

== ENCOUNTER → 2023-06-28 08:56 | Outpatient (CLI) | payer OTHER, SELFPAY ==
[2023-06-28 09:40] LABS: Add Manual Diff / Slide Review NO; Basophils Absolute Auto 0 /uL (0-100); Basophils Percent Auto 0.6 % (0-2); Eosinophils Absolute Auto 100 /uL (0-450); Eosinophils Percent Auto 1.8 % (2-4); Hematocrit 35.7 % (36-46); Hemoglobin 12.2 g/dL (12.0-16.0); Lymphocytes Absolute Auto 2200 /uL (1100-4500); Lymphocytes Percent Auto 38.6 % (25-40); Mean Corpuscular Hemoglobin 30.8 PG (26-34); Mean Corpuscular Volume 90.4 fL (80-100); Monocytes Absolute Auto 500 /uL (0-900); Monocytes Percent Auto 9.2 % (3-14); Neutrophils Absolute Auto 2800 /uL (1500-7000); Neutrophils Percent Auto 49.8 % (50-75); Platelet Count 220 X10^3/uL (150-400); Red Blood Cell Count 3.95 X10^6/uL (4.0-5.2); Red Cell Distribution Width 13.4 % (11.6-14.8); White Blood Cell Count 5.7 X10^3/uL (4.5-11.0)
[2023-06-28 10:10] LABS: Alanine Aminotransferase 24 IU/L (<35); Albumin Globulin Ratio 1.3 (1.0-2.8); Alkaline Phosphatase 50 U/L (38-126); Aspartate Aminotransferase 28 IU/L (14-36); BUN Creatinine Ratio 12.5 (6-22); Bilirubin Total 0.4 mg/dL (0.2-1.3); Blood Urea Nitrogen 9 mg/dL (7-17); C-Reactive Protein Quant 1.1 mg/dL (<1.0); Calcium 8.7 mg/dL (8.4-10.2); Carbon Dioxide 26 mmol/L (22-32); Chloride 102 mmol/L (98-107); Estimated Glomerular Filt Rate > 60 mL/min (>60); Globulin 3.1 g/dL (1.7-4.1); Glucose 94 mg/dL (70-100); HEMOLYSIS < 15 (0-50); Potassium 3.8 mmol/L (3.4-5.1); Sodium 138 mmol/L (137-145); Total Protein 7.1 g/dL (6.3-8.2)
[2023-06-28 10:17] LABS: Rheumatoid Factor < 8.6 IU/mL (<12.0)
[2023-06-28 10:27] LABS: Free T3, Triiodothyronine Free 4.28 pg/mL (2.77-5.27); Free T4, Direct Thyroxine 0.85 ng/dL (0.78-2.19)
[2023-06-28 10:31] LABS: Erythrocyte Sedimentation Rate 7 MM/HR (0-20)
[2023-06-28 10:41] LABS: Thyroid Stimulating Hormone 0.805 uIU/mL (0.47-4.68)
[2023-06-28 11:26] LABS: Creatinine Urine Random 302.7 mg/dL
[2023-06-28 11:29] LABS: Microalbumi Creatinin Ratio Ur 6.2 ug/mg CR (<30); Microalbumin Urine Random 1.9 mg/dL (0-1.6)
[2023-06-28 19:01] LABS: Hep C Virus Ab w/Reflex Quant NEGATIVE s/c (NEGATIVE)
[2023-06-30 18:48] LABS: CCP Antibodies IgG/IgA 4 units (0-19)
[2023-07-04 16:01] LABS: ANA Screen, IFA Negative (.)
== END ==
PROVIDERS: PCP Nurse Practitioner; Referring Provider Nurse Practitioner; Visit Provider Nurse Practitioner
DX: Z00.00 Encounter for general adult medical examination without abnormal findings (principal); Q79.60 Ehlers-Danlos syndrome, unspecified; M24.80 Other specific joint derangements of unspecified joint, not elsewhere classified; Z11.59 Encounter for screening for other viral diseases
CPT/HCPCS: 36415; 80053; 82043; 82570; 84439; 84443; 84481; 85025; 85651; 86038; 86140; 86200; 86430; 86803

== ENCOUNTER → 2023-08-03 09:48 | Outpatient (CLI) | payer OTHER, SELFPAY ==
--- NOTE | 2023-08-03 | DI.MG.S_ITS ---
BILATERAL DIGITAL SCREENING MAMMOGRAM 3D/2D WITH CAD: 08/03/2023 CLINICAL: Routine screening. Family history of breast cancer. Comparison is made to exams dated: 03/29/2021 mammogram, 03/26/2020 mammogram, 05/12/2019 mammogram, and 05/09/2018 mammogram - [facility]. Both breasts are heterogeneously dense, which may obscure small masses (category c / 51-75% glandular tissue). Current study was also evaluated with a Computer Aided Detection (CAD) system. No significant masses, calcifications, or other findings are seen in either breast. There has been no significant interval change. IMPRESSION: NEGATIVE There is no mammographic evidence of malignancy. A 1 year screening mammogram is recommended. Based on Tyrer-Cuzick model (a risk assessment model), the patient's lifetime risk is 32.4% and her 10 year risk is 4.2%. If a patient has an elevated risk, a more comprehensive evaluation should be considered and/or a referral to a genetic counselor. The [place] [employer], [place] [employer], and NCCN Guidelines advise the consideration of Breast MRI as an adjunct to screening mammography in patients whose Lifetime risk to develop breast cancer is 20% or higher. This exam was interpreted at Station ID: [id number]. NOTE: For mammograms, a report in lay terms will be sent to the patient. Approximately 15% of breast malignancies will not be visualized mammographically. In the management of a palpable breast mass, a negative mammogram must not discourage biopsy of a clinically suspicious lesion. Electronically Signed By: Theresa banerjee/nicky:08/03/2023 15:12:07 letter sent: Normal Exam ACR BI-RADS Category 1: Negative 3341F
== END ==
PROVIDERS: PCP Nurse Practitioner; Referring Provider Nurse Practitioner; Visit Provider Nurse Practitioner
DX: Z12.31 Encounter for screening mammogram for malignant neoplasm of breast (principal); Z80.3 Family history of malignant neoplasm of breast; R92.333 Mammographic heterogeneous density, bilateral breasts
CPT/HCPCS: 77063; 77067

== ENCOUNTER → 2024-02-11 13:06 | Outpatient (CLI) | payer OTHER, SELFPAY ==
[2024-02-13 14:13] LABS: Candida species Positive (Negative); Gardnerella vaginalis Negative (Negative); Trichomoas vaginalis Negative (Negative)
== END ==
PROVIDERS: PCP Nurse Practitioner; Visit Provider Obstetrics & Gynecology
DX: N89.8 Other specified noninflammatory disorders of vagina (principal)
CPT/HCPCS: 87480; 87510; 87660

== ENCOUNTER → 2024-02-13 13:09 | Outpatient (CLI) | payer OTHER, SELFPAY | PROVIDERS: PCP Nurse Practitioner; Visit Provider Obstetrics & Gynecology | DX: N89.8 Other specified noninflammatory disorders of vagina (principal) | CPT/HCPCS: 87070; 87205 ==

== ENCOUNTER → 2024-02-19 | Outpatient (CLI) | payer OTHER, SELFPAY | PROVIDERS: PCP Nurse Practitioner; Referring Provider Internal Medicine; Visit Provider Internal Medicine | DX: Z23 Encounter for immunization (principal) | CPT/HCPCS: 90471; 90656 ==

== ENCOUNTER → 2025-01-16 08:40 | Outpatient (CLI) | payer OTHER, SELFPAY | PROVIDERS: PCP Nurse Practitioner; Visit Provider Obstetrics & Gynecology | DX: R10.9 Unspecified abdominal pain (principal) | CPT/HCPCS: 87086 ==

== ENCOUNTER → 2025-01-28 14:12 | Outpatient (CLI) | payer OTHER, SELFPAY ==
--- NOTE | 2025-01-28 14:13 | DI.US.S_ITS ---
PROCEDURE: US PELVIC COMPLETE INDICATIONS: PAIN TECHNIQUE: Real-time scanning was performed of the pelvic organs, with image documentation. Additional endovaginal scanning was necessary due to incomplete visualization of the adnexal and endometrial structures by transabdominal scanning. COMPARISON: [facility], US, US PELVIC COMPLETE, 07/08/2020, 17:24. FINDINGS: Uterus: Uterus is anteverted and normal in size at 6.6 x 3.9 x 3.2 cm. The myometrium is heterogenous. The endometrium measures 2.0 mm combined thickness. Subcentimeter thyroid intramural noted. Ovaries: The right ovary measures 1.7 x 1.0 x 0.7 cm, with a calculated ovarian volume of 0.6 cc. The left ovary measures 1.8 x 1.2 x 0.8 cm, with a calculated ovarian volume of 0.9 cc. The ovaries have a normal sonographic appearance. Less than 12 follicles can be seen in each ovary. No adnexal masses are seen. Other: No pathologic free abdominal or pelvic fluid. IMPRESSION: Fibroid uterus. Otherwise unremarkable. We strive to produce accurate, complete, and clear reports of imaging services. To assist us in improving patient care, this report was composed using standard report templates and voice recognition software. Therefore, it may contain abnormal punctuation, insertions and/or omissions. Occasional wrong-word or sound-alike substitutions may occur. Though we review the report and make efforts to correct it, we do recommend that the report be read carefully in proper context to recognize any text inaccuracies. Dictated by: Jasper Lopez M.D. on 01/28/2025 at 16:34 Approved by: Jasper Lopez M.D. on 01/28/2025 at 16:36
== END ==
LOC: US 14:13
PROVIDERS: PCP Nurse Practitioner; Referring Provider Nurse Practitioner; Visit Provider Family Medicine
DX: D25.1 Intramural leiomyoma of uterus (principal); R10.2 Pelvic and perineal pain
CPT/HCPCS: 76830; 76856

== ENCOUNTER → 2025-02-10 12:15 | Outpatient (CLI) | payer OTHER, SELFPAY ==
[2025-02-10 14:43] LABS: TSH w/ Reflex to FT4 2.44 uIU/mL (0.47-4.68)
[2025-02-10 14:44] LABS: Ferritin 8 ng/mL (6-137)
== END ==
PROVIDERS: PCP Nurse Practitioner; Referring Provider Family Medicine; Visit Provider Family Medicine
DX: G25.81 Restless legs syndrome (principal); N83.209 Unspecified ovarian cyst, unspecified side; N93.8 Other specified abnormal uterine and vaginal bleeding
CPT/HCPCS: 36415; 82728; 84443

== ENCOUNTER → 2025-02-11 11:40 | Outpatient (CLI) | payer OTHER, SELFPAY ==
[2025-02-11 14:24] LABS: Folate 12.7 ng/mL (2.76-20.0); Vitamin B12 214 pg/mL (239-931)
[2025-02-12 21:36] LABS: Deamidated Gliadin Ab IgA 4 units (0-19); Deamidated Gliadin Ab IgG 1 units (0-19); Immunoglobulin A,Qn 106 mg/dL (87-352)
== END ==
PROVIDERS: PCP Family Medicine; Referring Provider Family Medicine; Visit Provider Family Medicine
DX: R79.0 Abnormal level of blood mineral (principal); Q79.60 Ehlers-Danlos syndrome, unspecified
CPT/HCPCS: 36415; 82607; 82746; 82784; 83516

== ENCOUNTER → 2025-03-13 14:29 | Outpatient (CLI) | payer OTHER, SELFPAY ==
[2025-03-13 15:03] LABS: Hematocrit 37.1 % (36-46); Hemoglobin 12.6 g/dL (12.0-16.0); Mean Corpuscular HGB Conc 33.9 % (30-36); Mean Corpuscular Hemoglobin 31.0 PG (26-34); Mean Corpuscular Volume 91.2 fL (80-100); Platelet Count 216 X10^3/uL (150-400)
[2025-03-13 15:42] LABS: Alanine Aminotransferase 24 IU/L (<35); Albumin 4.2 g/dL (3.5-5.0); Albumin Globulin Ratio 1.6 (1.0-2.8); Alkaline Phosphatase 54 U/L (38-126); Blood Urea Nitrogen 10 mg/dL (7-17); Calcium 8.9 mg/dL (8.4-10.2); Carbon Dioxide 27 mmol/L (22-32); Chloride 102 mmol/L (98-107); Estimated Glomerular Filt Rate > 60 mL/min (>60); Globulin 2.7 g/dL (1.7-4.1); Glucose 77 mg/dL (70-99); HEMOLYSIS < 15 (0-50); Potassium 4.0 mmol/L (3.4-5.1); Sodium 136 mmol/L (137-145); Total Protein 6.9 g/dL (6.3-8.2); Uric Acid 3.9 mg/dL (2.5-6.2)
[2025-03-13 16:03] LABS: TSH w/ Reflex to FT4 0.39 uIU/mL (0.47-4.68)
[2025-03-13 16:22] LABS: Vitamin B12 379 pg/mL (239-931)
[2025-03-13 16:49] LABS: Free T4, Direct Thyroxine 0.61 ng/dL (0.78-2.19)
== END ==
PROVIDERS: PCP Family Medicine; Referring Provider Family Medicine; Visit Provider Family Medicine
DX: D64.9 Anemia, unspecified (principal); Q79.60 Ehlers-Danlos syndrome, unspecified; R60.0 Localized edema; M25.50 Pain in unspecified joint
CPT/HCPCS: 36415; 80053; 82607; 84439; 84443; 84550; 85027; 85651; 86140

== ENCOUNTER → 2025-04-13 11:32 | Outpatient (CLI) | payer OTHER, SELFPAY ==
[2025-04-13 12:35] LABS: Free T3, Triiodothyronine Free 3.52 pg/mL (2.77-5.27); Free T4, Direct Thyroxine 0.60 ng/dL (0.78-2.19)
[2025-04-13 12:49] LABS: Thyroid Stimulating Hormone 0.766 uIU/mL (0.47-4.68)
[2025-04-13 12:56] LABS: Ferritin 9 ng/mL (6-137)
== END ==
PROVIDERS: PCP Family Medicine; Referring Provider Family Medicine; Visit Provider Family Medicine
DX: E03.8 Other specified hypothyroidism (principal); R53.82 Chronic fatigue, unspecified; R63.5 Abnormal weight gain
CPT/HCPCS: 36415; 82728; 84146; 84439; 84443; 84481